=== PATIENT | male | born 1965 | race African-American/Black ===

== ENCOUNTER 2017-08-14 19:14 | Emergency (ER) | payer SELFPAY, MEDICAID ==
[2017-08-14 20:06] LABS: BACTERIA,URINE 0 /HPF (0-FEW); BILIRUBIN,URINE NEGATIVE (NEG); CLARITY,URINE CLEAR; COLOR,URINE YELLOW; GLUCOSE,URINE NEGATIVE (NEG); NITRITE,URINE NEGATIVE (NEG); PROTEIN,URINE NEGATIVE (NEG-TRACE); RBC,URINE OCC /HPF (0-2); UROBILINOGEN,URINE 0.2 mg/dL (0.2 mg/dL); WBC,URINE 0 /HPF (0-4)
[2017-08-14] MEDS: metroNIDAZOLE 500 MG TABLET PO (20:16)
[2017-08-14] MEDS: AZITHROMYCIN 250 MG TABLET. PO (20:16)
[2017-08-14] MEDS: cefTRIAXone IM 250 MG VIAL IM (20:17)
== END 2017-08-14 20:26 | disposition home or self-care (01) ==
LOC: ER 19:14
DX: Z20.2 Contact with and (suspected) exposure to infections with a predominantly sexual mode of transmission (principal); F12.10 Cannabis abuse, uncomplicated; Z98.890 Other specified postprocedural states; Z88.6 Allergy status to analgesic agent
CPT/HCPCS: 81001; 87491; 87591; 96372; 99284; J0696; Q0144

== ENCOUNTER 2018-04-08 17:42 | Emergency (ER) | payer SELFPAY ==
[~2018-04-08] VITALS: Ht 167.6 cm; Wt 77.1 kg
[~2018-04-08 17:42] MED LIST: DOXY100T PO; ENOX150D3 MC; WARF10TA45 PO
--- NOTE | 2018-04-08 17:58 | PHYS DOC ---
Past Medical History Past Medical History: Cancer Additional Past Medical Histor: colon cancer Past Surgical History: Cancer Surgery, Colectomy, Other Additional Past Surgical Histo: COLON RESECTION S/P COLON MASS/CANCER Alcohol Use: None Drug Use: Marijuana, Other Adult General Chief Complaint Chief Complaint: ALTERED MENTAL STATUS HPI HPI Patient is a 53 year old male who presents with altered mental status. Patient is brought to the emergency department for altered mental status. EMS was called because the patient was not acting appropriately. And route to the hospital, the patient required 4-point restraint per EMS. By the time he arrived in the hospital, he was awake and alert. He was answering questions appropriately. He has no complaints. He denies prior history of seizure. He denies illicit drug use. No recent fever, chills, or other illness. Patient states he does not desire to be in the emergency room and has no problems. Review of Systems Review of Systems Constitutional: Denies fever Eyes: Denies change in visual acuity HENT: Denies nasal congestion or sore throat Respiratory: Denies cough or shortness of breath Cardiovascular: No additional information GI: Denies abdominal pain, nausea : Denies dysuria Musculoskeletal: Denies back pain Integument: Denies rash or skin lesions Neurologic: Denies headache, focal weakness, or other neurologic complaints All other systems were reviewed and found to be within normal limits, except as documented in this note. Allergies Allergies Allergies Coded Allergies Type Severity Reaction Last Updated Verified No Known Medication Allergies Allergy Unknown 11/23/15 Yes ibuprofen Adverse Reaction Intermediate JOINT PAIN/SWELLING 11/23/15 Yes Physical Exam Physical Exam Constitutional: Well developed, well nourished, no acute distress, non-toxic appearance HENT: Normocephalic, atraumatic, bilateral external ears normal Eyes: PERRLA, EOMI, conjunctiva normal Neck: Normal range of motion, no tenderness Cardiovascular:Heart rate regular rhythm, no murmur Lungs & Thorax: Bilateral breath sounds clear to auscultation Abdomen: Bowel sounds normal, soft, no tenderness Skin: Warm, dry, no erythema Extremities: No tenderness Neurologic: Alert and oriented X 3 Psychologic: Affect normal Current Patient Data Vital Signs Vital Signs Date Time Temp Pulse Resp B/P (MAP) Pulse Ox O2 Delivery O2 Flow Rate FiO2 04/08/18 19:00 57 18 99 04/08/18 18:36 97.8 144/87 (106) Room Air 97.8 Lab Values Laboratory Tests Test 04/08/18 17:46 04/08/18 18:05 Glucose (Fingerstick) 104 mg/dL (70-99) H White Blood Count 3.2 x10^3/uL (4.0-11.0) L Red Blood Count 4.31 x10^6/uL (4.30-5.70) Hemoglobin 15.0 g/dL (13.0-17.5) Hematocrit 43.7 % (39.0-53.0) Mean Corpuscular Volume 101 fL (79-100) H Mean Corpuscular Hemoglobin 35 pg (25-35) Mean Corpuscular Hemoglobin Concent 34 g/dL (31-37) Red Cell Distribution Width 13.6 % (11.5-14.5) Platelet Count 172 x10^3/uL (140-400) Neutrophils (%) (Auto) 48 % (31-73) Lymphocytes (%) (Auto) 43 % (24-48) Monocytes (%) (Auto) 7 % (0-9) Eosinophils (%) (Auto) 2 % (0-3) Basophils (%) (Auto) 1 % (0-3) Neutrophils # (Auto) 1.6 x10^3uL (1.8-7.7) L Lymphocytes # (Auto) 1.4 x10^3/uL (1.0-4.8) Monocytes # (Auto) 0.2 x10^3/uL (0.0-1.1) Eosinophils # (Auto) 0.1 x10^3/uL (0.0-0.7) Basophils # (Auto) 0.0 x10^3/uL (0.0-0.2) Sodium Level 140 mmol/L (136-145) Potassium Level 3.9 mmol/L (3.5-5.1) Chloride Level 105 mmol/L (98-107) Carbon Dioxide Level 27 mmol/L (21-32) Anion Gap 8 (6-14) Blood Urea Nitrogen 15 mg/dL (8-26) Creatinine 1.3 mg/dL (0.7-1.3) Estimated GFR (Cockcroft-Gault) 70.1 Glucose Level 102 mg/dL (70-99) H Calcium Level 9.2 mg/dL (8.5-10.1) Magnesium Level 2.0 mg/dL (1.8-2.4) Troponin I Quantitative < 0.017 ng/mL (0.000-0.055) Laboratory Tests 04/08/18 18:05 Laboratory Tests 04/08/18 18:05 EKG EKG No STEMI Interpretation Time: 19:15 Radiology/Procedures Radiology/Procedures [] Course & Med Decision Making Course & Med Decision Making Pertinent Labs and Imaging studies reviewed. (See chart for details) Patient was in the ER for a couple of hours. He was observed. He had no change in mental status. He was calm and cooperative. Ultimately, the patient signed out AGAINST MEDICAL ADVICE. The lab panel that was completed did not have any acute findings. Patient refused to give a urine sample. He was signed out by nursing staff. Dragon Disclaimer Dragon Disclaimer This electronic medical record was generated, in whole or in part, using a voice recognition dictation system. Departure Departure Disposition: 07 AGAINST MEDICAL ADVICE Condition: STABLE Referrals: NO PCP (PCP) JOSEY AIKEN DO Apr 08, 2018 17:58
[2018-04-08 18:13] LABS: BASO % 1 % (0-3); EOS # 0.1 x10^3/uL (0.0-0.7); EOS % 2 % (0-3); HEMATOCRIT 43.7 % (39.0-53.0); LYMPH # 1.4 x10^3/uL (1.0-4.8); LYMPH % 43 % (24-48); MEAN CORPUSCULAR HEMOGLOBIN 35 pg (25-35); MEAN CORPUSCULAR HGB CONC 34 g/dL (31-37); MEAN CORPUSCULAR VOLUME 101 fL (79-100); MONO # 0.2 x10^3/uL (0.0-1.1); MONO % 7 % (0-9); NEUT # 1.6 x10^3uL (1.8-7.7); NEUT % 48 % (31-73); PLATELET COUNT 172 x10^3/uL (140-400); RED BLOOD COUNT 4.31 x10^6/uL (4.30-5.70); RED CELL DISTRIBUTION WIDTH 13.6 % (11.5-14.5); WHITE BLOOD COUNT 3.2 x10^3/uL (4.0-11.0)
[2018-04-08 18:24] LABS: CALCIUM 9.2 mg/dL (8.5-10.1); CREATININE 1.3 mg/dL (0.7-1.3); GFR 70.1; POTASSIUM 3.9 mmol/L (3.5-5.1)
[2018-04-08 19:00] VITALS: BP 133/78
--- NOTE | 2018-04-09 07:09 | EKG ---
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 T ABNORMALITY IN INFERIOR LEADS Electronically Signed On 04-09-2018 8:53:47 LOG HOOKER by Aris Murray
== END 2018-04-08 19:40 | disposition left against medical advice (07) ==
LOC: ER 17:42
DX: R41.82 Altered mental status, unspecified (principal); Z88.6 Allergy status to analgesic agent; F12.10 Cannabis abuse, uncomplicated
CPT/HCPCS: 36415; 80048; 82962; 83735; 84484; 85025; 93005; 99284

== ENCOUNTER 2018-12-10 09:04 | Emergency (ER) | payer SELFPAY ==
[~2018-12-10] VITALS: Ht 167.6 cm; Wt 86.2 kg
--- NOTE | 2018-12-10 09:10 | PHYS DOC ---
Past Medical History Past Medical History: Cancer Additional Past Medical Histor: colon cancer Past Surgical History: Cancer Surgery, Colectomy, Other Additional Past Surgical Histo: COLON RESECTION S/P COLON MASS/CANCER Alcohol Use: None Drug Use: Marijuana, Phencyclidine, Other Adult General Chief Complaint Chief Complaint: SEXUALLY TRANSMITTED DISEASE HPI HPI Patient is a 53 year old male who presents with was told by partner that she had gonorrhea and for the last couple of days he has had burning with urination and now purulent penile discharge this AM. No pain at this time. Review of Systems Review of Systems Constitutional: Denies fever or chills [] Eyes: Denies change in visual acuity, redness, or eye pain [] HENT: Denies nasal congestion or sore throat [] Respiratory: Denies cough or shortness of breath [] Cardiovascular: No additional information not addressed in HPI [] GI: Denies abdominal pain, nausea, vomiting, bloody stools or diarrhea [] : Penile discharge and burning with urination. Denies dysuria or hematuria [] Musculoskeletal: Denies back pain or joint pain [] Integument: Denies rash or skin lesions [] Neurologic: Denies headache, focal weakness or sensory changes [] Endocrine: Denies polyuria or polydipsia [] All other systems were reviewed and found to be within normal limits, except as documented in this note. Current Medications Current Medications Current Medications Medications (Trade) Dose Ordered Sig/[facility] Start Time Stop Time Status Last Admin Dose Admin Azithromycin (Zithromax) 1,000 mg 1X ONCE 12/10/18 09:30 12/10/18 09:31 Ceftriaxone Sodium (Rocephin Im) 250 mg 1X ONCE 12/10/18 09:30 12/10/18 09:31 Ondansetron HCl (Zofran Odt) 4 mg 1X ONCE 12/10/18 09:30 12/10/18 09:31 Allergies Allergies Allergies Coded Allergies Type Severity Reaction Last Updated Verified No Known Medication Allergies Allergy Unknown 11/23/15 Yes ibuprofen Adverse Reaction Intermediate JOINT PAIN/SWELLING 11/23/15 Yes Physical Exam Physical Exam Constitutional: Well developed, well nourished, no acute distress, non-toxic appearance. [] HENT: Normocephalic, atraumatic, bilateral external ears normal, oropharynx moist, no oral exudates, nose normal. [] Eyes: PERRLA, EOMI, conjunctiva normal, no discharge. [] Neck: Normal range of motion, no tenderness, supple, no stridor. [] Cardiovascular:Heart rate regular rhythm, no murmur [] Lungs & Thorax: Bilateral breath sounds clear to auscultation [] Abdomen: Bowel sounds normal, soft, no tenderness, no masses, no pulsatile masses. [] Skin: Warm, dry, no erythema, no rash. [] Back: No tenderness, no CVA tenderness. [] Extremities: No tenderness, no cyanosis, no clubbing, ROM intact, no edema. [] Neurologic: Alert and oriented X 3, normal motor function, normal sensory function, no focal deficits noted. [] Psychologic: Affect normal, judgement normal, mood normal. Normal physical exam.[] EKG EKG [] Radiology/Procedures Radiology/Procedures [] Course & Med Decision Making Course & Med Decision Making Patient is a 53 year old male who presents with was told by partner that she had gonorrhea and for the last couple of days he has had burning with urination and now purulent penile discharge this AM. No pain at this time. Patient treated for gonorrhea and chlamydia. No penile lesions or discharge seen at this time. Patient is told that he will be called if results are positive only in 48 hours. Dragon Disclaimer Dragon Disclaimer This electronic medical record was generated, in whole or in part, using a voice recognition dictation system. Departure Departure Impression: Primary Impression: STD exposure Disposition: HOME, SELF-CARE Condition: STABLE Referrals: NO PCP (PCP) Patient Instructions: Sexually Transmitted Disease Additional Instructions: You will be called in 48 hours if your results come back positive only. You have been treated today for sexually transmitted diseases. Notify all partners that they should be treated too. ISAIAS PEREZ APRN Dec 10, 2018 09:10
[2018-12-10 09:15] VITALS: BP 131/82
[2018-12-10] MEDS ORDERED: ONDANSETRON ODT 4 MG TAB.RAPDIS. PO ONE (09:30)
[2018-12-10] MEDS ORDERED: cefTRIAXone IM 250 MG VIAL IM ONE (09:30)
[2018-12-10] MEDS ORDERED: AZITHROMYCIN 250 MG TABLET. PO ONE (09:30)
[2018-12-10 09:45] LABS: BILIRUBIN,URINE NEGATIVE (NEG); CLARITY,URINE CLEAR; COLOR,URINE YELLOW; NITRITE,URINE NEGATIVE (NEG); PROTEIN,URINE NEGATIVE (NEG-TRACE); UROBILINOGEN,URINE 0.2 mg/dL (0.2 mg/dL)
[2018-12-10 10:08] LABS: BACTERIA,URINE 0 /HPF (0-FEW); RBC,URINE 0 /HPF (0-2); SQUAMOUS EPITHELIAL CELL,UR FEW /LPF
== END 2018-12-10 10:05 | disposition home or self-care (01) ==
LOC: ER 09:04
DX: Z20.2 Contact with and (suspected) exposure to infections with a predominantly sexual mode of transmission (principal); Z90.49 Acquired absence of other specified parts of digestive tract; Z88.8 Allergy status to other drugs, medicaments and biological substances
CPT/HCPCS: 81001; 87491; 87591; 96372; 99284; J0696; Q0144; Q0162

== ENCOUNTER 2019-08-02 10:39 | Emergency (ER) | payer SELFPAY ==
[~2019-08-02] VITALS: Ht 167.6 cm; Wt 91.0 kg
[2019-08-02 10:48] VITALS: BP 148/87
[2019-08-02] MEDS ORDERED: PENI500T PO (11:07)
[2019-08-02] MEDS ORDERED: CHLO15MO2 SWSP (11:08)
--- NOTE | 2019-08-02 11:08 | PHYS DOC ---
Past Medical History Past Medical History: Cancer Additional Past Medical Histor: colon cancer Past Surgical History: Cancer Surgery, Colectomy, Other Additional Past Surgical Histo: COLON RESECTION S/P COLON MASS/CANCER Smoking Status: Current Every Day Smoker Alcohol Use: None Drug Use: Marijuana, Phencyclidine, Other General Adult EDM: Chief Complaint: DENTAL PROBLEM HPI: HPI: Patient is a 54 year old AA male who presents to the emergency department with complaints of right lower quadrant dental pain and gingival swelling that began this morning when he awoke. Patient denies any injury or trauma to his face. He denies any fever, cough, shortness of breath, sore throat, body aches, chills, fatigue, nausea, vomiting, or abdominal pain. He currently rates the pain a 10 out of 10 on the pain scale, he denies any alleviating or exacerbating factors. Review of Systems: Review of Systems: Complete ROS is negative unless otherwise noted in HPI. Heart Score: Risk Factors: Risk Factors: DM, Current or recent (<one month) smoker, HTN, HLP, family history of CAD, obesity. Risk Scores: Score 0 - 3: 2.5% MACE over next 6 weeks - Discharge Home Score 4 - 6: 20.3% MACE over next 6 weeks - Admit for Clinical Observation Score 7 - 10: 72.7% MACE over next 6 weeks - Early Invasive Strategies Allergies: Allergies: Allergies Coded Allergies Type Severity Reaction Last Updated Verified No Known Medication Allergies Allergy Unknown 11/23/15 Yes ibuprofen Adverse Reaction Intermediate JOINT PAIN/SWELLING 11/23/15 Yes Physical Exam: PE: Constitutional: Well developed, well nourished, no acute distress, non-toxic appearance. [] HENT: Normocephalic, atraumatic, bilateral external ears normal, oropharynx moist, no oral exudates, nose normal; diffuse dental decay noted in right lower quadrant with gingival erythema and swelling, no visible or palpable dental abscess present, multiple broken and missing teeth [] Eyes: PERRLA, EOMI, conjunctiva normal, no discharge. [] Neck: Normal range of motion, no tenderness, supple, no stridor. [] Cardiovascular:Heart rate regular rhythm Lungs & Thorax: Respirations even and unlabored, no retractions, no respiratory distress Skin: Warm, dry, no erythema, no rash. [] Extremities: No cyanosis, ROM intact Neurologic: Alert and oriented X 3, o focal deficits noted. [] Psychologic: Affect normal, judgement normal, mood normal. [] Current Patient Data: Vital Signs: Vital Signs Date Time Temp Pulse Resp B/P (MAP) Pulse Ox O2 Delivery O2 Flow Rate FiO2 08/02/19 10:48 98.8 65 16 148/87 (107) 98 Room Air 98.8 EKG: EKG: [] Radiology/Procedures: Radiology/Procedures: [] Course & Med Decision Making: Course & Med Decision Making Pertinent Labs and Imaging studies reviewed. (See chart for details) [] Dragon Disclaimer: Dragon Disclaimer: This electronic medical record was generated, in whole or in part, using a voice recognition dictation system. Departure Departure Impression: Primary Impression: Infected dental carries Additional Impressions: Dentalgia Gingivitis, acute Disposition: 01 HOME, SELF-CARE Condition: STABLE Referrals: NO PCP (PCP) Patient Instructions: Dental Caries, Dental Pain, [id number] Additional Instructions: Fill prescription(s) and use as directed. Follow up with dentist using the referral list provided. Return to the ER if symptoms worsen. Scripts Chlorhexidine Gluconate (PERIDEX) 15 Ml Mouthwash 15 ML SWSP BID for 7 Days, #473 ML 0 Refills Goff teeth before using to prevent staining. Swish for approximately 30 seconds before spitting. Prov: FREDDY TAMAYO APRN 08/02/19 Penicillin V Potassium (PENICILLIN V POTASSIUM) 500 Mg Tablet 1 TAB PO QID for 10 Days, #40 TAB 0 Refills Prov: FREDDY TAMAYO APRN 08/02/19 FREDDY TAMAYO APRN Aug 02, 2019 11:08
== END 2019-08-02 11:15 | disposition home or self-care (01) ==
LOC: ER 10:39
DX: K02.9 Dental caries, unspecified (principal); K05.10 Chronic gingivitis, plaque induced; F17.200 Nicotine dependence, unspecified, uncomplicated; F12.90 Cannabis use, unspecified, uncomplicated; F15.90 Other stimulant use, unspecified, uncomplicated; Z85.9 Personal history of malignant neoplasm, unspecified; Z98.890 Other specified postprocedural states; Z88.6 Allergy status to analgesic agent
CPT/HCPCS: 99283

== ENCOUNTER 2019-11-02 13:12 | Emergency (ER) | payer SELFPAY ==
[~2019-11-02] VITALS: Ht 167.6 cm; Wt 85.0 kg
[~2019-11-02 13:12] MED LIST changes: +CHLO15MO2 SWSP; +PENI500T PO
[2019-11-02 13:30] VITALS: BP 123/81
--- NOTE | 2019-11-02 13:51 | PHYS DOC ---
Past Medical History Past Medical History: Cancer Additional Past Medical Histor: colon cancer (ISAIAS PEREZ PUBLICITY WRITER) Past Surgical History: Cancer Surgery, Colectomy, Other Additional Past Surgical Histo: COLON RESECTION S/P COLON MASS/CANCER (ISAIAS PEREZ PUBLICITY WRITER) Smoking Status: Current Every Day Smoker Alcohol Use: None Drug Use: Marijuana, Phencyclidine, Other (ISAIAS PEREZ PUBLICITY WRITER) General Adult EDM: Chief Complaint: SEXUALLY TRANSMITTED DISEASE HPI: HPI: Patient is a 54 year old male who presents with states he had sexual intercourse with a woman that states that she was just diagnosed with chlamydia. He states he has having burning with urination for the last couple days. He denies any penile discharge or sores. Patient is educated that the results will come back in 48 hours and he will only be called if they are positive. Patient will be treated today prophylactically for STDs. Patient agrees to this. (ISAIAS PEREZ APRN) Review of Systems: Review of Systems: Constitutional: Denies fever or chills. [] Eyes: Denies change in visual acuity. [] HENT: Denies nasal congestion or sore throat. [] Respiratory: Denies cough or shortness of breath. [] Cardiovascular: Denies chest pain or edema. [] GI: Denies abdominal pain, nausea, vomiting, bloody stools or diarrhea. [] : dysuria. STD exposure [] Musculoskeletal: Denies back pain or joint pain. [] Integument: Denies rash. [] Neurologic: Denies headache, focal weakness or sensory changes. [] Endocrine: Denies polyuria or polydipsia. [] Lymphatic: Denies swollen glands. [] Psychiatric: Denies depression or anxiety. [] (ISAIAS PEREZ PUBLICITY WRITER) Heart Score: Risk Factors: Risk Factors: DM, Current or recent (<one month) smoker, HTN, HLP, family history of CAD, obesity. Risk Scores: Score 0 - 3: 2.5% MACE over next 6 weeks - Discharge Home Score 4 - 6: 20.3% MACE over next 6 weeks - Admit for Clinical Observation Score 7 - 10: 72.7% MACE over next 6 weeks - Early Invasive Strategies (ISAIAS PEREZ PUBLICITY WRITER) Current Medications: Current Medications Medications (Trade) Dose Ordered Sig/Roger Start Time Stop Time Status Last Admin Dose Admin Azithromycin (Zithromax) 1,000 mg 1X ONCE 11/02/19 14:00 11/02/19 14:01 Ceftriaxone Sodium (Rocephin Im) 250 mg 1X ONCE 11/02/19 14:00 11/02/19 14:01 [facility] Allergies: Allergies: Allergies Coded Allergies Type Severity Reaction Last Updated Verified No Known Medication Allergies Allergy Unknown 11/23/15 Yes ibuprofen Adverse Reaction Intermediate JOINT PAIN/SWELLING 11/23/15 Yes ([facility] Physical Exam: PE: Constitutional: Well developed, well nourished, no acute distress, non-toxic appearance. [] HENT: Normocephalic, atraumatic, bilateral external ears normal, oropharynx moist, no oral exudates, nose normal. [] Eyes: PERRLA, EOMI, conjunctiva normal, no discharge. [] Neck: Normal range of motion, no tenderness, supple, no stridor. [] Cardiovascular:Heart rate regular rhythm, no murmur [] Lungs & Thorax: Bilateral breath sounds clear to auscultation [] Abdomen: Bowel sounds normal, soft, no tenderness, no masses, no pulsatile masses. [] Skin: Warm, dry, no erythema, no rash. [] Back: No tenderness, no CVA tenderness. [] Extremities: No tenderness, no cyanosis, no clubbing, ROM intact, no edema. [] Neurologic: Alert and oriented X 3, normal motor function, normal sensory function, no focal deficits noted. [] Psychologic: Affect normal, judgement normal, mood normal. Normal physical exam [] ([facility] EKG: EKG: [] [facility] Radiology/Procedures: Radiology/Procedures: [] [facility]) Course & Med Decision Making: Course & Med Decision Making Pertinent Labs and Imaging studies reviewed. (See chart for details) No penile discharges were seen. Alert and oriented. Amatory steady gait. Afebrile. No CVA tenderness. Abdomen is soft and nontender. Patient denies abdominal pain, nausea, vomiting, diarrhea, fever, cough, blood in his urine, back pain, testicular pain or swelling. [] (ISAIAS PEREZ APRN) Dragon Disclaimer: Dragon Disclaimer: This electronic medical record was generated, in whole or in part, using a voice recognition dictation system. (ISAIAS PEREZ APRN) Departure Departure Impression: Primary Impression: STD exposure Disposition: HOME, SELF-CARE Condition: STABLE Referrals: NO PCP (PCP) Patient Instructions: Sexually Transmitted Disease Additional Instructions: Follow-up with primary care provider if needed. Do not have sex with anyone else for the next 7 days. Justicifation of Admission Dx: Justifications for Admission: Justification of Admission Dx: N/A (ISAIAS PEREZ APRN) Attending Signature Attending Signature I have reviewed the PA/CELLULOID TRIMMER's note and plan of care. I was available for consultation as needed during the patient's visit in the emergency department. I agree with the clinical impression, plan, and disposition. (FRANCISCA MACHADO DO) ISAIAS PEREZ APRN Nov 02, 2019 13:51 FRANCISCA MACHADO DO Nov 05, 2019 01:08
[2019-11-02] MEDS ORDERED: ONDANSETRON ODT 4 MG TAB.RAPDIS. PO ONE (14:00)
[2019-11-02] MEDS ORDERED: cefTRIAXone IM 250 MG VIAL IM ONE (14:00)
[2019-11-02] MEDS ORDERED: AZITHROMYCIN 250 MG TABLET. PO ONE (14:00)
[2019-11-02 14:20] LABS: BILIRUBIN,URINE NEGATIVE (NEG); CLARITY,URINE CLEAR; COLOR,URINE YELLOW; NITRITE,URINE NEGATIVE (NEG); PROTEIN,URINE NEGATIVE (NEG-TRACE)
[2019-11-02 14:25] LABS: BACTERIA,URINE 0 /HPF (0-FEW); RBC,URINE 0 /HPF (0-2); WBC,URINE RARE /HPF (0-4)
== END 2019-11-02 14:35 | disposition home or self-care (01) ==
LOC: ER 13:12
DX: Z20.2 Contact with and (suspected) exposure to infections with a predominantly sexual mode of transmission (principal); F17.200 Nicotine dependence, unspecified, uncomplicated; Z88.6 Allergy status to analgesic agent
CPT/HCPCS: 81001; 87491; 87591; 96372; 99283; J0696

== ENCOUNTER 2020-03-18 13:33 | Emergency (ER) | payer SELFPAY ==
[~2020-03-18] VITALS: Ht 167.6 cm; Wt 95.0 kg
[2020-03-18 14:00] VITALS: BP 120/80
[2020-03-18] MEDS ORDERED: AZITHROMYCIN 250 MG TABLET. PO ONE (14:00)
[2020-03-18] MEDS ORDERED: ONDANSETRON ODT 4 MG TAB.RAPDIS. PO ONE (14:00)
[2020-03-18] MEDS ORDERED: cefTRIAXone IM 250 MG VIAL IM ONE (14:00)
--- NOTE | 2020-03-18 14:03 | PHYS DOC ---
Past Medical History Past Medical History: Cancer Additional Past Medical Histor: colon cancer Past Surgical History: Cancer Surgery, Colectomy, Other Additional Past Surgical Histo: COLON RESECTION S/P COLON MASS/CANCER Smoking Status: Current Every Day Smoker Alcohol Use: None Drug Use: Marijuana, Phencyclidine, Other General Adult EDM: Chief Complaint: SEXUALLY TRANSMITTED DISEASE HPI: HPI: Patient is a 55 year old male who presents with states for the last 4 days he has had white discharge with painful urination that he rates an 8 out of 10. He states that he had sexual intercourse 2 days prior with a woman that stated that she had a sexually transmitted disease but he did not know what it was. He has a history of colon cancer, colectomy and is a smoker. Patient denies fever, back pain, abdominal pain, nausea, vomiting, diarrhea, chest pain, shortness of air, headache, dizziness, blood in his urine. Review of Systems: Review of Systems: Constitutional: Denies fever or chills. [] Eyes: Denies change in visual acuity. [] HENT: Denies nasal congestion or sore throat. [] Respiratory: Denies cough or shortness of breath. [] Cardiovascular: Denies chest pain or edema. [] GI: Denies abdominal pain, nausea, vomiting, bloody stools or diarrhea. [] : Denies dysuria. + Exposure to sexually transmitted disease, +penile discharge, +urinary burning with urination [] Musculoskeletal: Denies back pain or joint pain. [] Integument: Denies rash. [] Neurologic: Denies headache, focal weakness or sensory changes. [] Endocrine: Denies polyuria or polydipsia. [] Lymphatic: Denies swollen glands. [] Psychiatric: Denies depression or anxiety. [] Heart Score: Risk Factors: Risk Factors: DM, Current or recent (<one month) smoker, HTN, HLP, family history of CAD, obesity. Risk Scores: Score 0 - 3: 2.5% MACE over next 6 weeks - Discharge Home Score 4 - 6: 20.3% MACE over next 6 weeks - Admit for Clinical Observation Score 7 - 10: 72.7% MACE over next 6 weeks - Early Invasive Strategies Current Medications: Current Medications Medications (Trade) Dose Ordered Sig/Roger Start Time Stop Time Status Last Admin Dose Admin Azithromycin (Zithromax) 1,000 mg 1X ONCE 03/18/20 14:00 03/18/20 14:01 Ceftriaxone Sodium (Rocephin Im) 250 mg 1X ONCE 03/18/20 14:00 03/18/20 14:01 Ondansetron HCl (Zofran Odt) 4 mg 1X ONCE 03/18/20 14:00 03/18/20 14:01 Allergies: Allergies: Allergies Coded Allergies Type Severity Reaction Last Updated Verified No Known Medication Allergies Allergy Unknown 11/23/15 Yes ibuprofen Adverse Reaction Intermediate JOINT PAIN/SWELLING 11/23/15 Yes Physical Exam: PE: Constitutional: Well developed, well nourished, no acute distress, non-toxic appearance. [] HENT: Normocephalic, atraumatic, bilateral external ears normal, oropharynx moist, no oral exudates, nose normal. [] Eyes: PERRLA, EOMI, conjunctiva normal, no discharge. [] Neck: Normal range of motion, no tenderness, supple, no stridor. [] Cardiovascular:Heart rate regular rhythm, no murmur [] Lungs & Thorax: Bilateral breath sounds clear to auscultation [] Abdomen: Bowel sounds normal, soft, no tenderness, no masses, no pulsatile masses. [] Skin: Warm, dry, no erythema, no rash. [] Back: No tenderness, no CVA tenderness. [] Extremities: No tenderness, no cyanosis, no clubbing, ROM intact, no edema. [] Neurologic: Alert and oriented X 3, normal motor function, normal sensory function, no focal deficits noted. [] Psychologic: Affect normal, judgement normal, mood normal. Normal physical exam [] EKG: EKG: [] Radiology/Procedures: Radiology/Procedures: [] Course & Med Decision Making: Course & Med Decision Making Pertinent Labs and Imaging studies reviewed. (See chart for details) See HPI. There are no penile sores and there is no discharge seen at this time. No CVA tenderness. Abdomen is soft and nontender. He is afebrile. Ambulatory with a steady gait. Speaks in full complete sentences. Skin pink warm and dry. Patient was given azithromycin and Rocephin in the ED. Patient can follow-up with primary care provider if needed. [] Tressaon Disclaimer: Sis Disclaimer: This electronic medical record was generated, in whole or in part, using a voice recognition dictation system. Departure Departure Impression: Primary Impression: STD exposure Disposition: 01 DC HOME SELF CARE/HOMELESS Condition: STABLE Referrals: NO PCP (PCP) Patient Instructions: Sexually Transmitted Disease Additional Instructions: Follow-up with primary care provider if needed if you continue to have problems. Will be called in 48 hours when test results come back if they are indeed positive. Drink plenty of fluids. ISAIAS PEREZ PRESS OPERATOR ASSISTANT Mar 18, 2020 14:03
[2020-03-18 14:19] LABS: BILIRUBIN,URINE NEGATIVE (NEG); CLARITY,URINE CLEAR; COLOR,URINE YELLOW; NITRITE,URINE NEGATIVE (NEG); PROTEIN,URINE NEGATIVE (NEG-TRACE); UROBILINOGEN,URINE 0.2 mg/dL (0.2 mg/dL)
[2020-03-18 14:31] LABS: BACTERIA,URINE 0 /HPF (0-FEW); RBC,URINE 0 /HPF (0-2); WBC,URINE 0 /HPF (0-4)
== END 2020-03-18 14:53 | disposition home or self-care (01) ==
LOC: ER 13:33
DX: R30.0 Dysuria (principal); Z20.2 Contact with and (suspected) exposure to infections with a predominantly sexual mode of transmission; R36.9 Urethral discharge, unspecified; F17.200 Nicotine dependence, unspecified, uncomplicated; Z88.8 Allergy status to other drugs, medicaments and biological substances
CPT/HCPCS: 81001; 87491; 87591; 96372; 99283; J0696

== ENCOUNTER 2020-07-20 14:39 | Emergency (ER) | payer SELFPAY ==
[~2020-07-20] VITALS: Ht 172.7 cm; Wt 88.6 kg
[2020-07-20] MEDS ORDERED: HALOPERIDOL LACTATE 5 MG/ML VIAL. ONE (14:43)
[2020-07-20] MEDS ORDERED: HALOPERIDOL LACTATE 5 MG/ML VIAL. IM ONE (14:45)
[2020-07-20 15:22] VITALS: BP 168/74
[2020-07-20 15:34] LABS: BASO % 1 % (0-3); EOS # 0.1 x10^3/uL (0.0-0.7); EOS % 2 % (0-3); HEMOGLOBIN 14.4 g/dL (13.0-17.5); LYMPH # 1.6 x10^3/uL (1.0-4.8); LYMPH % 49 % (24-48); MEAN CORPUSCULAR HEMOGLOBIN 34 pg (25-35); MEAN CORPUSCULAR HGB CONC 34 g/dL (31-37); MEAN CORPUSCULAR VOLUME 100 fL (79-100); MONO # 0.3 x10^3/uL (0.0-1.1); MONO % 8 % (0-9); NEUT # 1.3 x10^3/uL (1.8-7.7); NEUT % 40 % (31-73); PLATELET COUNT 154 x10^3/uL (140-400); WHITE BLOOD COUNT 3.3 x10^3/uL (4.0-11.0)
[2020-07-20 15:49] LABS: CALCIUM 8.5 mg/dL (8.5-10.1); CREATININE 1.2 mg/dL (0.7-1.3); GFR 76.3; POTASSIUM 3.8 mmol/L (3.5-5.1)
[2020-07-20 16:48] LABS: BILIRUBIN,URINE NEGATIVE (NEG); CLARITY,URINE CLEAR; COLOR,URINE YELLOW; NITRITE,URINE NEGATIVE (NEG); PH,URINE 5.5 (<5.0-8.0); PROTEIN,URINE NEGATIVE (NEG-TRACE)
[2020-07-20 16:53] LABS: BARBITURATES NEG (NEG); BENZODIAZEPINES NEG (NEG); CANNABINOIDS POS (NEG); COCAINE NEG (NEG); METHADONE NEG (NEG); OPIATES NEG (NEG); PHENCYCLIDINE POS (NEG)
[2020-07-20 16:55] LABS: AMPHETAMINE/METHAMPHETAMINE NEG (NEG); BACTERIA,URINE 0 /HPF (0-FEW); RBC,URINE 0 /HPF (0-2); WBC,URINE 0 /HPF (0-4)
--- NOTE | 2020-07-20 17:36 | ED.ADGEN ---
Past Medical History Past Medical History: Cancer Additional Past Medical Histor: colon cancer Past Surgical History: Cancer Surgery, Colectomy, Other Additional Past Surgical Histo: COLON RESECTION S/P COLON MASS/CANCER Smoking Status: Current Every Day Smoker Alcohol Use: None Drug Use: Marijuana, Phencyclidine, Other General Adult EDM: Chief Complaint: SUBSTANCE ABUSE HPI: HPI: Patient is a 55-year-old male with past medical history of bipolar disorder who presents to the emergency room after being found down in some grass. EMS states that he was called and is unresponsive but he was easily awakened upon their arrival. He did seem confused but was cooperative with them. Upon arrival to the emergency room patient became combative and wanted to leave. Patient did not know the year, where he was, or what was going on. He was unable to answer any questions. Of note, on reevaluation patient is able to say that he has not been taking his bipolar medications. He states that he also used some PCP earlier today. Review of Systems: Review of Systems: Unable to obtain Current Medications: Current Medications Medications (Trade) Dose Ordered Sig/Roger Start Time Stop Time Status Last Admin Dose Admin Haloperidol Lactate (Haldol Inj) 5 mg STK-MED ONCE 07/20/20 14:43 07/20/20 14:43 DC Allergies: Allergies: Allergies Coded Allergies Type Severity Reaction Last Updated Verified No Known Medication Allergies Allergy Unknown 11/23/15 Yes ibuprofen Adverse Reaction Intermediate JOINT PAIN/SWELLING 11/23/15 Yes Physical Exam: PE: General: Awake, alert, NAD. Well Nourished, well hydrated. Uncooperative HEENT: Atraumatic, EOMI, PERRL, airway patent, moist oral mucosa Neck: Supple, trachea midline Respiratory: CTA bilaterally, normal effort, no wheezing/crackles CV: RRR, no murmur, cap refill <2 GI: Soft, nondistended, nontender, no masses MSK: No obvious deformities Skin: Warm, dry, intact Neuro: A&O x1, speech NL, sensory and motor grossly intact, no focal deficits Psych: Uncooperative, agitated, yelling Current Patient Data: Labs: Laboratory Tests Test 07/20/20 15:27 07/20/20 16:35 White Blood Count 3.3 x10^3/uL (4.0-11.0) L Red Blood Count 4.20 x10^6/uL (4.30-5.70) L Hemoglobin 14.4 g/dL (13.0-17.5) Hematocrit 42.0 % (39.0-53.0) Mean Corpuscular Volume 100 fL (79-100) Mean Corpuscular Hemoglobin 34 pg (25-35) Mean Corpuscular Hemoglobin Concent 34 g/dL (31-37) Red Cell Distribution Width 14.0 % (11.5-14.5) Platelet Count 154 x10^3/uL (140-400) Neutrophils (%) (Auto) 40 % (31-73) Lymphocytes (%) (Auto) 49 % (24-48) H Monocytes (%) (Auto) 8 % (0-9) Eosinophils (%) (Auto) 2 % (0-3) Basophils (%) (Auto) 1 % (0-3) Neutrophils # (Auto) 1.3 x10^3/uL (1.8-7.7) L Lymphocytes # (Auto) 1.6 x10^3/uL (1.0-4.8) Monocytes # (Auto) 0.3 x10^3/uL (0.0-1.1) Eosinophils # (Auto) 0.1 x10^3/uL (0.0-0.7) Basophils # (Auto) 0.0 x10^3/uL (0.0-0.2) Sodium Level 146 mmol/L (136-145) H Potassium Level 3.8 mmol/L (3.5-5.1) Chloride Level 110 mmol/L (98-107) H Carbon Dioxide Level 26 mmol/L (21-32) Anion Gap 10 (6-14) Blood Urea Nitrogen 12 mg/dL (8-26) Creatinine 1.2 mg/dL (0.7-1.3) Estimated GFR (Cockcroft-Gault) 76.3 Glucose Level 108 mg/dL (70-99) H Calcium Level 8.5 mg/dL (8.5-10.1) Ethyl Alcohol Level < 10 mg/dL (0-10) Urine Collection Type Unknown Urine Color Yellow Urine Clarity Clear Urine pH 5.5 (<5.0-8.0) Urine Specific [place] 1.020 (1.000-1.030) Urine Protein Negative mg/dL (NEG-TRACE) Urine Glucose (UA) Negative mg/dL (NEG) Urine Ketones (Stick) Negative mg/dL (NEG) Urine Blood Negative (NEG) Urine Nitrite Negative (NEG) Urine Bilirubin Negative (NEG) Urine Urobilinogen Dipstick 1.0 mg/dL (0.2 mg/dL) Urine Leukocyte Esterase Negative (NEG) Urine RBC 0 /HPF (0-2) Urine WBC 0 /HPF (0-4) Urine Squamous Epithelial Cells Occ /LPF Urine Bacteria 0 /HPF (0-FEW) Urine Opiates Screen Neg (NEG) Urine Methadone Screen Neg (NEG) Urine Barbiturates Neg (NEG) Urine Phencyclidine Screen Pos (NEG) Urine Amphetamine/Methamphetamine Neg (NEG) Urine Benzodiazepines Screen Neg (NEG) Urine Cocaine Screen Neg (NEG) Urine Cannabinoids Screen Pos (NEG) Urine Ethyl Alcohol Neg (NEG) Laboratory Tests 07/20/20 15:27 Laboratory Tests 07/20/20 15:27 Vital Signs: Vital Signs Date Time Temp Pulse Resp B/P (MAP) Pulse Ox O2 Delivery O2 Flow Rate FiO2 07/20/20 15:22 46 168/74 (105) 99 Room Air 07/20/20 14:39 97.6 20 97.6 EKG: EKG: [] Heart Score: C/O Chest Pain: N/A Risk Factors: Risk Factors: DM, Current or recent (<one month) smoker, HTN, HLP, family history of CAD, obesity. Risk Scores: Score 0 - 3: 2.5% MACE over next 6 weeks - Discharge Home Score 4 - 6: 20.3% MACE over next 6 weeks - Admit for Clinical Observation Score 7 - 10: 72.7% MACE over next 6 weeks - Early Invasive Strategies Radiology/Procedures: Radiology/Procedures: [] Course & Med Decision Making: Course & Med Decision Making Pertinent Labs and Imaging studies reviewed. (See chart for details) Patient is a 55-year-old male who presents to the emergency room after being found down. Upon arrival to the emergency room patient is combative and disoriented. A code grimaldo had to be called and security was involved with calming the patient down. He did receive Haldol 10 mg IM. About 45 minutes after the Haldol patient did start talking normally. He admits to using PCP earlier today. He states that he is feeling better. He states that his mother will pick him up. Patient is stable at this time and will be discharged to his mother. Patient's test results and vitals while in the ED were fully reviewed and discussed with the patient. Patient is stable and at this time does not need admission to the hospital. We have discussed strict return precautions and the importance of following up with their Primary Care Physician. Patient stated understanding and was given an opportunity to ask any questions. Patient is in agreement with plan. Dragon Disclaimer: Dragwes Disclaimer: This electronic medical record was generated, in whole or in part, using a voice recognition dictation system. Departure Departure Impression: Primary Impression: PCP (phencyclidine) abuse Additional Impression: Altered mental status Disposition: 01 DC HOME SELF CARE/HOMELESS Condition: IMPROVED Referrals: NO PCP (PCP) Patient Instructions: Substance Abuse-Brief Problem Qualifiers KATELYN LEWIS MD Jul 20, 2020 17:36
== END 2020-07-20 17:40 | disposition home or self-care (01) ==
LOC: ER 14:39
DX: R41.82 Altered mental status, unspecified (principal); F16.10 Hallucinogen abuse, uncomplicated; F31.9 Bipolar disorder, unspecified; F17.200 Nicotine dependence, unspecified, uncomplicated; Z85.9 Personal history of malignant neoplasm, unspecified; Z98.890 Other specified postprocedural states; Z90.89 Acquired absence of other organs; Z88.8 Allergy status to other drugs, medicaments and biological substances
CPT/HCPCS: 36415; 80048; 80307; 81001; 85025; 99283; G0480

== ENCOUNTER 2020-08-09 13:13 | Emergency (ER) | payer SELFPAY ==
[~2020-08-09] VITALS: Ht 167.6 cm; Wt 89.0 kg
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
[2020-08-09] MEDS ORDERED: levETIRAcetam 1,000 MG in IV DEXTROSE 5% 100ML 100 ML IV ONE (14:00)
--- NOTE | 2020-08-09 14:06 | RAD ---
CT brain without contrast. HISTORY: Seizure CT scan of the brain was done without contrast. Sinuses are clear. A skull fracture is not identified . Mastoids are normally aerated. There is no intracranial hemorrhage or subdural hematoma. Ventricles are normal in size. There is no mass effect or shift of the midline. IMPRESSION: 1. No intracranial hemorrhage or acute finding noted. PQRS Compliance Statement: One or more of the following individualized dose reduction techniques were utilized for this examinat ion: 1. Automated exposure control 2. Adjustment of the mA and/or kV according to patient size 3. Use of iterative reconstruction technique Electronically signed by: Valerio Badillo MD (08/09/2020 2:03 PM) [facility]
[2020-08-09] MEDS ORDERED: IV NORMAL SALINE 1000ML BAG 1,000 ML IV ONE (14:15)
[2020-08-09 14:17] LABS: BASO % 0 % (0-3); EOS % 1 % (0-3); HEMATOCRIT 41.6 % (39.0-53.0); HEMOGLOBIN 14.3 g/dL (13.0-17.5); LYMPH # 1.2 x10^3/uL (1.0-4.8); LYMPH % 37 % (24-48); MEAN CORPUSCULAR HEMOGLOBIN 35 pg (25-35); MEAN CORPUSCULAR HGB CONC 34 g/dL (31-37); MEAN CORPUSCULAR VOLUME 101 fL (79-100); MONO # 0.3 x10^3/uL (0.0-1.1); MONO % 9 % (0-9); NEUT # 1.7 x10^3/uL (1.8-7.7); NEUT % 53 % (31-73); PLATELET COUNT 182 x10^3/uL (140-400); RED BLOOD COUNT 4.14 x10^6/uL (4.30-5.70); WHITE BLOOD COUNT 3.1 x10^3/uL (4.0-11.0)
[2020-08-09 14:25] LABS: PROTHROMBIN TIME PATIENT 14.3 SEC (11.7-14.0)
[2020-08-09 14:31] LABS: CALCIUM 8.6 mg/dL (8.5-10.1); CREATININE 1.2 mg/dL (0.7-1.3); GFR 76.3; POTASSIUM 4.3 mmol/L (3.5-5.1)
[2020-08-09 14:37] LABS: ALBUMIN 3.7 g/dL (3.4-5.0); ALBUMIN/GLOBULIN RATIO 1.1 (1.0-1.7); TOTAL BILIRUBIN 0.5 mg/dL (0.2-1.0); TOTAL PROTEIN 7.1 g/dL (6.4-8.2)
[2020-08-09] MEDS ORDERED: LEVE500T56 PO (15:13)
[2020-08-09 15:56] VITALS: BP 137/81
--- NOTE | 2020-08-09 18:34 | EKG ---
[facility] [address] [place] [address] Test Date: 2020-08-09 Test Time: 14:05:30 Pat Name: SEBLE DU Department: Room: Gender: M Shop [employer]: : 1965 Requested By: ISAIAS PEREZ Order Number: [id number] Reading MD: Measurements Intervals [place] Rate: 60 P: 19 [place]: 158 QRS: -14 QRSD: 82 T: 15 QT: 408 QTc: 408 Interpretive Statements SINUS RHYTHM LEFTWARD AXIS QRS(T) CONTOUR ABNORMALITY CONSIDER ANTEROLATERAL MYOCARDIAL DAMAGE POSSIBLY ABNORMAL ECG RI6.01 No previous ECG available for comparison
== END 2020-08-09 16:00 | disposition home or self-care (01) ==
LOC: ER 13:13
DX: R55 Syncope and collapse (principal); R56.9 Unspecified convulsions; F16.20 Hallucinogen dependence, uncomplicated; F12.10 Cannabis abuse, uncomplicated; F17.210 Nicotine dependence, cigarettes, uncomplicated; Z86.718 Personal history of other venous thrombosis and embolism
CPT/HCPCS: 36415; 70450; 80053; 83605; 84484; 85025; 85610; 93005; 96365; 99285; J1953; J7030; J7060